=== PATIENT | male | born 1965 | race Caucasian/White ===

== ENCOUNTER 2021-11-08 01:01 | Day surgery (SDC) | payer BC, SELFPAY ==
[2021-10-25 11:57] VITALS: BMI 26.9
[2021-11-08 07:37] VITALS: BP 118/76; PULSE 75; RESP 20; TEMP 35.5; O2SAT 100; BMI 26.4
[2021-11-08] MEDS: LACTATED RINGERS 1,000 ML 150 ML IV CONT (08:00)
--- NOTE | 2021-11-08 08:04 | P.PNAN_ITS ---
Anes - Initial Pre Proc Eval Procedure: Operation Date: 11/08/21 08:30 Proposed Procedures p Screening Colonoscopy - Mike Carney MD Date/Time: 11/08/21 08:04 Surgeon: Mike Carney MD Pre Op Diagnosis: neoplasm screening Patient Data Age: 56 Gender: M Height: 1.91 m Weight: 95.9 kg Last Vital Signs Temp 96 F L 11/08/21 07:37 Pulse 75 11/08/21 07:37 Resp 20 11/08/21 07:37 BP 118/76 11/08/21 07:37 Pulse Ox 100 11/08/21 07:37 O2 Del Method Room Air 11/08/21 07:37 Allergies Allergy/AdvReac Type Severity Reaction Status Date / Time hydrocodone Allergy Unknown mood Verified 11/08/21 07:36 disorder meperidine Allergy Unknown allergic Verified 11/08/21 07:36 Home Medications Medication Instructions Recorded Confirmed Type methylphenidate HCl 36 mg 36 mg PO BID 10/25/21 10/25/21 History tablet,extended release 24 hr Patient hx anesthesia problems: none Family hx anesthesia problems: none Results Review: All pre-operative results and documents have been reviewed as part of the pre- operative evaluation. [facility] Past Medical History Medical History COVID-19 Surgical History Surgical History H/O knee surgery (~1984) bilateral History of appendectomy (~1974) Family History Family History Mother Diabetes mellitus Family history of cardiovascular disease Social History Social History (Updated 10/25/21 @ 12:10 by Nasrin Odonnell RN) Smoking status: Former smoker Smokeless tobacco user: chewing tobacco Smoking end date: 02/16/87 Alcohol intake: never Substance use: never Substance use type: does not use Living arrangements: with family Spiritual care concerns: No Anes - Eval Final PreProcedure Day of Procedure 11/08/21 08:04 Patient weight: normal Heart: regular rate and rhythm Lungs: clear to auscultation Airway: Mallampati scale class II Neurological: alert and oriented Last oral intake: >/= 8 hours ASA classification: II Emergent: no Anesthetic plan: proceed Anesthesia type and monitoring: general GIVS and standard monitoring Results Review: All pre-operative results and documents have been reviewed as part of the pre- operative evaluation. Informed Consent: The patient's anesthetic plan and its attendant risks and benefits were discussed with the patient/family/POA. Questions were solicited and answers provided to the satisfaction of the patient/family/POA.
--- NOTE | 2021-11-08 08:17 | PM.IMHP ---
H&P: HPI History of Present Illness Date/Time: 11/08/21 08:17 Chief Complaint: neoplasia screening. Narrative: This is a 56-year-old white male patient presents for neoplasia screening colonoscopy. Patient's current weight appetite and bowel movements are normal. He denies abdominal pain. Patient has had no bleeding. Family history is noncontributory. Review of Systems Review of Systems: Review of systems noncontributory. [facility] Past Medical History Medical History COVID-19 Surgical History Surgical History H/O knee surgery (~1984) bilateral History of appendectomy (~1974) Family History Family History Mother Diabetes mellitus Family history of cardiovascular disease Social History Social History (Updated 10/25/21 @ 12:10 by Nasrin Odonnell RN) Smoking status: Former smoker Smokeless tobacco user: chewing tobacco Smoking end date: 02/16/87 Alcohol intake: never Substance use: never Substance use type: does not use Living arrangements: with family Spiritual care concerns: No Meds Home Medications and Allergies Home Medications Medication Instructions Recorded Confirmed Type methylphenidate HCl 36 mg 36 mg PO BID 10/25/21 10/25/21 History tablet,extended release 24 hr Allergies Allergy/AdvReac Type Severity Reaction Status Date / Time hydrocodone Allergy Unknown mood Verified 11/08/21 07:36 disorder meperidine Allergy Unknown allergic Verified 11/08/21 07:36 Vital Signs Vital Signs - 24 hr 11/08/21 07:37 Temperature 96 F L Pulse Rate 75 Respiratory Rate 20 Blood Pressure 118/76 Pulse Oximetry 100 Oxygen Delivery Room Air Exam Narrative: Physical exam reveals patient to be alert. Vital signs stable. HEENT exam is unremarkable. Patient is anicteric. Lungs are clear to auscultation and percussion. Heart is without murmur or extra sounds. Abdomen bowel sounds present soft nontender with no organomegaly. Digital external rectal exam is normal. Assessment and Plan Assessment and plan (1) Colon cancer screening: Code(s): Z12.11 - Encounter for screening for malignant neoplasm of colon Status: Acute Assessment and Plan: Patient presents for screening colonoscopy. Appears to be at average risk for colon polyps.
[2021-11-08 08:47] VITALS: BP 88/48; PULSE 74; RESP 18; O2SAT 99
[2021-11-08 08:57] VITALS: BP 108/72; PULSE 72; RESP 18; O2SAT 99
[2021-11-08 09:07] VITALS: BP 110/70; PULSE 74; RESP 20; O2SAT 98
== END 2021-11-08 09:15 | disposition home or self-care (01) ==
PROVIDERS: PCP Family Medicine; Visit Provider Internal Medicine Gastroenterology
PROC: 0DJD8ZZ Inspection of Lower Intestinal Tract, Via Natural or Artificial Opening Endoscopic (ICD-10-PCS; CPT 45378; principal; 2021-11-08 08:30)
DX: Z12.11 Encounter for screening for malignant neoplasm of colon (principal); D12.4 Benign neoplasm of descending colon; K64.8 Other hemorrhoids; Z86.16 Personal history of COVID-19; Z87.891 Personal history of nicotine dependence
CPT/HCPCS: 45385; 88305; J2704; J7120

== ENCOUNTER 2022-02-21 08:07 | Outpatient (CLI) | payer BC, SELFPAY ==
[2022-02-21 20:06] LABS: Alanine Aminotransferase 28 U/L (6-50); Albumin Level 4.1 g/dL (3.5-5.1); Alkaline Phosphatase 74 U/L (38-126); Anion Gap 4 mmol/L (8-16); Aspartate Amino Transferase 42 U/L (17-59); Bilirubin,Total 0.4 mg/dL (0.2-1.3); Blood Urea Nitrogen 17 mg/dL (9-20); Calcium 8.3 mg/dL (8.4-10.2); Carbon Dioxide 31 mmol/L (22-30); Chloride 106 mmol/L (98-107); Cholesterol 179 mg/dL (0-200); Estimated Glomerular Filt Rate > 60; Glucose 74 mg/dL (65-110); HDL Direct 48 mg/dL; Sodium 141 mmol/L (137-145); Triglycerides 67 mg/dL (<150)
[2022-02-21 20:17] LABS: LDL Cholesterol Direct 100 mg/dL
[2022-02-21 20:23] LABS: Hemoglobin A1C 5.8 % (<5.7)
[2022-02-21 20:36] LABS: Prostate Specific Antigen 0.8 ng/mL (< OR = 4.0)
== END 2022-02-21 08:08 | disposition home or self-care (01) ==
LOC: ANHGOSHLAB 08:09
PROVIDERS: PCP Family Medicine; Visit Provider Family Medicine
DX: Z12.5 Encounter for screening for malignant neoplasm of prostate (principal); E78.5 Hyperlipidemia, unspecified
CPT/HCPCS: 36415; 80053; 80061; 83036; 84153; G0103

== ENCOUNTER 2022-09-12 08:06 | Outpatient (CLI) | payer OTHER, SELFPAY | END 2022-09-12 08:07 | disposition home or self-care (01) | LOC: ANHGOSHLAB 08:11 | PROVIDERS: PCP Family Medicine; Visit Provider Family Medicine | DX: R73.03 Prediabetes (principal) | CPT/HCPCS: 36415; 83036 ==

== ENCOUNTER 2023-03-20 08:13 | Outpatient (CLI) | payer OTHER, SELFPAY ==
[2023-03-20 19:35] LABS: Alanine Aminotransferase 25 U/L (6-50); Albumin Level 4.1 g/dL (3.5-5.1); Alkaline Phosphatase 78 U/L (38-126); Anion Gap 4 mmol/L (8-16); Aspartate Amino Transferase 36 U/L (17-59); Bilirubin,Total 0.4 mg/dL (0.2-1.3); Blood Urea Nitrogen 12 mg/dL (9-20); Calcium 8.6 mg/dL (8.4-10.2); Carbon Dioxide 30 mmol/L (22-30); Chloride 104 mmol/L (98-107); Estimated Glomerular Filt Rate > 60; Glucose 85 mg/dL (65-110); Potassium 4.5 mmol/L (3.4-5.0); Sodium 138 mmol/L (137-145)
[2023-03-20 20:22] LABS: Hemoglobin A1C 5.9 % (<5.7)
== END 2023-03-20 08:14 | disposition home or self-care (01) ==
LOC: ANHGOSHLAB 08:15
PROVIDERS: PCP Family Medicine; Visit Provider Family Medicine
DX: R73.03 Prediabetes (principal)
CPT/HCPCS: 36415; 80053; 83036

== ENCOUNTER 2023-09-15 08:15 | Outpatient (CLI) | payer OTHER, SELFPAY ==
[2023-09-15 19:02] LABS: Alanine Aminotransferase 25 U/L (6-50); Albumin Level 4.3 g/dL (3.5-5.1); Alkaline Phosphatase 70 U/L (38-126); Anion Gap 9 mmol/L (4-12); Aspartate Amino Transferase 38 U/L (17-59); Bilirubin,Total 0.6 mg/dL (0.2-1.3); Blood Urea Nitrogen 15 mg/dL (9-20); Calcium 8.8 mg/dL (8.4-10.2); Carbon Dioxide 29 mmol/L (22-30); Chloride 100 mmol/L (98-107); Estimated Glomerular Filt Rate > 60; Glucose 109 mg/dL (65-110); Potassium 5.1 mmol/L (3.4-5.0); Sodium 138 mmol/L (137-145)
== END 2023-09-15 08:16 | disposition home or self-care (01) ==
LOC: ANHGOSHLAB 08:16
PROVIDERS: PCP Family Medicine; Visit Provider Family Medicine
DX: R73.03 Prediabetes (principal)
CPT/HCPCS: 36415; 80053; 83036